=== PATIENT | male | born 1975 | race Caucasian/White ===

== ENCOUNTER 2017-11-18 09:57 | Emergency (ER) | payer BC ==
[~2017-11-18] VITALS: Ht 177.8 cm; Wt 88.5 kg
[~2017-11-18 09:57] MED LIST: AUGMENTIN 875875 MG; AUGMENTIN 875875 MG PO; CIPRODEX OTIC7.5 ML OTIC; HYDROCODON-ACE1 EAC7 PO; MEDROLDOSEPACK PO; XANAX 0.25 MG0.25 MG PO; [UNRECOGNIZED DRUG - OTHER]
[2017-11-18 10:02] VITALS: BP 127/70
[2017-11-18] MEDS ORDERED: IBUPROFEN 800800 M1 PO (10:09)
== END 2017-11-18 10:32 | disposition home or self-care (01) ==
LOC: M.ERS 09:57
DX: M79.662 Pain in left lower leg (principal); F41.9 Anxiety disorder, unspecified